=== PATIENT | female | born 1985 ===

== ENCOUNTER 2016-09-08 14:59 | Emergency (ER) | payer SELFPAY | END 2016-09-08 16:12 | disposition left against medical advice (07) | LOC: ER 14:59 | DX: Z53.21 Procedure and treatment not carried out due to patient leaving prior to being seen by health care provider (principal) ==

== ENCOUNTER 2016-09-28 16:17 | Emergency (ER) | payer SELFPAY ==
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
== END 2016-09-28 18:11 | disposition home or self-care (01) ==
LOC: ER 16:17
DX: R10.31 Right lower quadrant pain (principal); M54.2 Cervicalgia